=== PATIENT | female | born 1945 | race Caucasian/White ===

== ENCOUNTER 2018-07-12 08:19 | Emergency (ER) | payer MEDICARE, OTHER ==
[2018-07-12] MEDS ORDERED: PREDNISONE 20 MG TABLET PO ONE (09:42)
[2018-07-12] MEDS ORDERED: ONDANSETRON HCL INJ/PF 4 MG/2 ML SDV IV ONE (09:42)
[2018-07-12] MEDS ORDERED: MORPHINE SULFATE 10 MG/ML INJ IV ONE (09:42)
--- NOTE | 2018-07-12 09:52 | ER Document Report ---
ED General - General Chief Complaint: Headache Stated Complaint: HEADACHE Time Seen by Provider: 07/12/18 09:36 Information source: Patient Notes: 73-year-old female that presents with daughter with what she states is 3 weeks of bilateral jaw pain, worse with chewing; headache, without blurry vision, nausea, vomiting, or fevers. Patient states that this started around the same time that she had 2 crowns placed to her right posterior molars. She states that this has been persistent. She denies any aggravating or relieving factors. She denies any weakness or numbness to her arms or legs. She denies any blurry vision. She has went to see her primary care physician Dr. Darshana Goodwin, 3 days ago and had laboratory work and ESR ordered as well as an MRI of the brain. She is scheduled for temporal artery biopsy bilaterally on Saturday. She states that the MRI showed some white matter degenerative changes. She also states for 3 days she has had some midline lower back pain. She denies any trauma. She denies any weakness or numbness to her legs. She denies any dysuria. She states however she did have an episode of incontinence last night secondary to the pain walking to the bathroom. She denies any night sweats or weight loss. TRAVEL OUTSIDE OF THE [place] IN LAST 30 DAYS: No - HPI Onset: Other - See above Onset/Duration: Gradual Quality of pain: Achy Severity: Moderate Pain Level: 2 - See above Associated symptoms: Other - See above Exacerbated by: Denies Relieved by: Denies Similar symptoms previously: No Recently seen / treated by doctor: Yes - Related Data Allergies/Adverse Reactions: codeine [Codeine] Allergy (Verified 07/27/14 13:39) severe nausea Past Medical History - Social History Smoking Status: Never Smoker Chew tobacco use (# tins/day): No Frequency of alcohol use: None Drug Abuse: None Family History: Reviewed & Not Pertinent Patient has suicidal ideation: No Patient has homicidal ideation: No - Past Medical History Cardiac Medical History: Reports: Hx Hypertension Denies: Hx Heart Attack Pulmonary Medical History: Denies: Hx Asthma Neurological Medical History: Denies: Hx Cerebrovascular Accident, Hx Seizures Renal/ Medical History: Denies: Hx Peritoneal Dialysis GI Medical History: Denies: Hx Hepatitis, Hx Hiatal Hernia, Hx Ulcer Infectious Medical History: Denies: Hx Hepatitis Past Surgical History: Reports: Hx Hysterectomy. Denies: Hx Mastectomy, Hx Open Heart Surgery, Hx Pacemaker Review of Systems - Review of Systems Constitutional: denies: Fever EENT: denies: Eye discharge, Nose discharge Cardiovascular: denies: Chest pain, Palpitations Respiratory: denies: Short of breath Gastrointestinal: denies: Vomiting Genitourinary: denies: Dysuria Musculoskeletal: denies: Leg swelling Skin: Other - no hives. denies: Rash Neurological/Psychological: Other - no slurred speech -: Yes All other systems reviewed and negative Physical Exam - Vital signs Vitals: Resp Pulse Ox 39 H 97 07/12/18 08:33 07/12/18 08:33 Notes: Reviewed vital signs and nursing note as charted by RN. CONSTITUTIONAL: Alert and oriented and responds appropriately to questions. Well -appearing; well-nourished HEAD: Normocephalic; atraumatic EYES: PERRL; full extraocular range of motion; conjunctivae clear, sclerae non- icteric ENT: Normal nose; no rhinorrhea; moist mucous membranes; pharynx without lesions noted; no intraoral lesions with no obvious dental decay; no facial swelling, sinus tenderness or bogginess, mastoid swelling or tenderness. Patient has some tenderness to the bilateral temples with no erythema or induration present NECK: Supple without meningismus; non-tender; no carotid bruit; no cervical lymphadenopathy, no palpable thyroid CARD: Regular rate and rhythm; no murmurs, no clicks, no rubs, no gallops; symmetric distal pulses RESP: Normal chest excursion without splinting or tachypnea; breath sounds clear and equal bilaterally ABD/GI: Normal bowel sounds; non-distended; soft, non-tender, no rebound, no guarding; no palpable organomegaly or masses BACK: The back appears normal. EXT: Normal ROM in all joints; non-tender to palpation; no edema SKIN: No acute lesions noted NEURO: CN II through XII are intact. Patient has 5 out of 5 bilateral upper and lower extremity strength with sensation intact to light touch; minimal but present 1+ bilateral patellar reflexes PSYCH: The patient's mood and manner are appropriate. Grooming and personal hygiene are appropriate Course - Re-evaluation Re-evalutation: 07/12/18 09:52 Given the above history and physical examination, with a non-congruent story, I called and spoke directly to the primary care physician Dr. Darshana Calderon. She states around 2 days ago that the patient had an MRI at a local outpatient diagnostic imaging center. She states that there was "degenerative white matter changes" diffusely. Patient also had a sedimentation rate of 66. She did not place the patient on steroids. Patient has been afebrile at her office and according to patient's report. Given the above history, physical, afebrile, slow onset initially of bilateral jaw pain, worse when she chews, radiating to the temples, with MRI is recorded, without blurry vision, with an elevated sedimentation rate, I do believe acute bacterial meningitis and subarachnoid hemorrhage to be unlikely. Temporal arteritis is still in differential and therefore I will provide prednisone. Given the patient's lower back pain, with an episode of possible incontinence, I will order basic labs, urine analysis, and an MRI of the lumbar spine. I do not detect any focal neurological deficits. I do not detect any throat swelling , facial swelling, or intraoral lesions. 07/12/18 11:21 Pain is improved. No change in examination. White blood cell count and other laboratory values as recorded. 07/12/18 12:52 MRI is recorded. I have called and spoke directly to the radiologist who read the report and he states he sees no signs that would explain a cauda equina- like presentation. Patient still has 5 out of 5 strength to the bilateral lower extremities. Patient urinated without difficulty. On reexamination the patient has good perineal sensation. Patient's headache has improved. She still denies any blurry vision. Still has no focal neurological deficits. I have provided prednisone which I feel would be beneficial for possible temporal arteritis as well as what appears to be a herniated disc. 07/12/18 13:33 Patient states her headache is completely resolved. I have already provided her the first time dose of steroids. Patient has a biopsy on Saturday. The patient's primary care physician is easily accessible. Patient will be discharged home at this time with strict return precautions, Vicodin for pain, a 5-day course of steroids, with strict return precautions. - Vital Signs Vital signs: Temp Pulse Resp BP Pulse Ox 97.9 F 26 H 148/86 H 95 07/12/18 08:44 07/12/18 12:54 07/12/18 12:54 07/12/18 12:54 - Laboratory Result Diagrams: 07/12/18 09:55 07/12/18 09:55 Laboratory results interpreted by me: 07/12/18 07/12/18 07/12/18 09:55 09:55 10:30 MCV 99 H MCH 33.8 H RDW 14.3 H Lymphocytes % 12.4 L Carbon Dioxide 32 H Urine Blood SMALL H Discharge - Discharge Clinical Impression: Face pain Headache Qualifiers: Headache type: unspecified Headache chronicity pattern: acute headache Intractability: not intractable Qualified Code(s): R51 - Headache Low back pain Qualifiers: Chronicity: acute Back pain laterality: midline Sciatica presence: without sciatica Qualified Code(s): M54.5 - Low back pain Condition: Good Disposition: HOME, SELF-CARE Additional Instructions: Come back immediately with any worsening headaches, blurry vision, weakness or numbness, fevers or vomiting, chest pain, lower extremity weakness, incontinence , inability to urinate, or any other acute problems. Please make sure you follow-up on Saturday for the biopsy and discuss with that physician my 5-day prescription for 60 mg of prednisone daily. Please follow-up with your primary care physician. Prescriptions: Hydrocodone/Acetaminophen [[place] 5-325 Tablet] 1 each PO Q6 PRN #12 tablet PRN Reason: For Pain Ondansetron [Zofran Odt 4 mg Tablet] 1 tab PO Q6H #15 tab.rapdis Prednisone [Deltasone 20 mg Tablet] 3 tab PO DAILY 5 Days tablet Referrals: BRIANNA SAVAGE MD [ACTIVE STAFF] - Follow up as needed
[2018-07-12 10:08] LABS: ABSOLUTE BASOPHILS # (AUTO) 0.1 10^3/uL (0.0-0.2); ABSOLUTE EOSINOPHILS # (AUTO) 0.1 10^3/uL (0.0-0.6); ABSOLUTE LYMPHOCYTES (AUTO) 1.1 10^3/uL (0.5-4.7); ABSOLUTE MONOCYTES (AUTO) 0.9 10^3/uL (0.1-1.4); ABSOLUTE NEUT (AUTO) 6.6 10^3/uL (1.7-8.2); BASOPHILS % (AUTO) 0.7 % (0-2); EOSINOPHILS % (AUTO) 0.9 % (0-6); HEMATOCRIT 39.1 % (36.0-47.0); HEMOGLOBIN 13.4 g/dL (12.0-15.5); LYMPHOCYTES % (AUTO) 12.4 % (13-45); MEAN CORPUSCULAR HEMOGLOBIN 33.8 pg (27.0-33.4); MEAN CORPUSCULAR HGB CONC 34.3 g/dL (32.0-36.0); MEAN CORPUSCULAR VOLUME 99 fl (80-97); MONOCYTES % (AUTO) 10.1 % (3-13); PLATELET COUNT 398 10^3/uL (150-450); RED BLOOD COUNT 3.97 10^6/uL (3.72-5.28); RED CELL DISTRIBUTION WIDTH 14.3 % (11.5-14.0); SEGMENTED NEUTROPHILS % (AUTO) 75.9 % (42-78); TOTAL CELLS COUNTED % (AUTO) 100 %; WHITE BLOOD COUNT 8.7 10^3/uL (4.0-10.5)
[2018-07-12 10:31] LABS: ALANINE AMINOTRANSFERASE 39 U/L (9-52); ALBUMIN 3.6 g/dL (3.5-5.0); ALKALINE PHOSPHATASE 123 U/L (38-126); ANION GAP 8 (5-19); ASPARTATE AMINO TRANSFERASE 26 U/L (14-36); BILIRUBIN,DIRECT 0.2 mg/dL (0.0-0.4); BILIRUBIN,TOTAL 0.7 mg/dL (0.2-1.3); BLOOD UREA NITROGEN 7 mg/dL (7-20); CALCIUM 9.3 mg/dL (8.4-10.2); CARBON DIOXIDE 32 mmol/L (22-30); CHLORIDE 99 mmol/L (98-107); GLUCOSE 108 mg/dL (75-110); POTASSIUM 4.9 mmol/L (3.6-5.0); TOTAL PROTEIN 6.8 g/dL (6.3-8.2)
[2018-07-12 10:40] LABS: APPEARANCE,URINE CLEAR; BILIRUBIN,URINE NEGATIVE (NEGATIVE); COLOR,URINE YELLOW; GLUCOSE, URINE NEGATIVE (NEGATIVE); KETONES,URINE NEGATIVE (NEGATIVE); LEUKOCYTE ESTERASE,URINE NEGATIVE (NEGATIVE); NITRITE,URINE NEGATIVE (NEGATIVE); PROTEIN,URINE NEGATIVE (NEGATIVE); URINE SPECIFIC GRAVITY 1.009; UROBILINOGEN,URINE NEGATIVE mg/dL (<2.0)
--- NOTE | 2018-07-12 12:00 | RADIOLOGY REPORT (SQ) ---
EXAM DESCRIPTION: MRI LUMBAR SPINE COMBO COMPLETED DATE/TIME: 07/12/2018 11:30 am REASON FOR STUDY: 9; low back pain with incontinence COMPARISON: None. TECHNIQUE: Sagittal and Axial imaging includes T1, T1 post gadolinium, T2, STIR and gradient echo se quences. Coronal T2/HASTE imaging. CONTRAST TYPE AND DOSE: 10 mL Dotarem. RENAL FUNCTION: GFR > 60. LIMITATIONS: None. FINDINGS: VISUALIZED UPPER ABDOMEN: Limited evaluation. No acute or suspicious findings suggested. SEGMENTATION: No transitional anatomy. The lowest well-developed disc space is labeled L5-S1. ALIGNMENT: 3 mm retrolisthesis of L2 on L3 and 4 mm anterolisthesis of L4 on L5. VERTEBRAE: Intact. No fractures. BONE MARROW: No marrow edema or fracture. Scattered areas of reactive changes. . DISC SIGNAL: Multilevel disc desiccation. POSTERIOR ELEMENTS: Generally intact. No pars defect evident. HARDWARE: None in the spine. CORD AND CONUS: Normal in size and signal intensity. Conus at the appropriate level. SOFT TISSUES: No aortic aneurysm seen. No bulky retroperitoneal adenopathy or mass. No paraspinal mas s or fluid. L1-L2: 7.5 mm focal disc protrusion in the left L1-2 neural foramen with moderate -severe neural fora sumit stenosis. Mild effacement of the anterior thecal sac on the left, no high-grade central stenos is. L2-L3: No significant spinal stenosis or exit foraminal stenosis. L3-L4: Mild central spinal and bilateral neural foraminal stenosis due to broad-based disc bulge. L4-L5: Moderate-severe central spinal canal stenosis, 7 mm AP dimension residual, due to ligamentum f lavum hypertrophy and broad-based disc bulge. There is also moderate neural foraminal narrowing bila terally at this level. L5-S1: No significant spinal stenosis or exit foraminal stenosis. LOWER THORACIC: Incompletely imaged. No stenosis seen. SACRUM: Visualized upper sacrum intact. ENHANCEMENT: Mild thin dural enhancement adjacent to the L1-2 level disc protrusion. OTHER: No other significant findings. IMPRESSION: At the L4/5 level there is Moderate-severe central spinal canal stenosis, 7 mm AP dimens ion residual, due to ligamentum flavum hypertrophy and broad-based disc bulge. 7.5 mm focal disc prot rusion in the left L1-2 neural foramen with moderate -severe neural foraminal stenosis. Mild thin dur al enhancement adjacent to the L1-2 level disc protrusion, reactive appearing. No marrow edema or fl uid collection.3 mm retrolisthesis of L2 on L3 and 4 mm anterolisthesis of L4 on L5, degenerative richard earing. . TECHNICAL DOCUMENTATION: JOB ID: [id number] 2010 [employer]- All Rights Reserved Reading location - IP/workstation name: [email or web address]
[2018-07-12 13:47] VITALS: BP 163/89
[2018-07-12] MEDS ORDERED: HYDROCODONE/ACETAMINOPHEN 5-325 MG TABLET PO ONE (13:48)
== END 2018-07-12 14:05 | disposition home or self-care (01) ==
LOC: ER 08:19
DX: R51 Headache (principal); R68.84 Jaw pain; M54.5 Low back pain
CPT/HCPCS: 99284; 96374; 96375; 36415; 85025; 80053; 81001; 72158; A9576; J2270; A9270 ×2; J2405; J7512

== ENCOUNTER 2018-10-28 11:30 | Emergency (ER) | payer MEDICARE, OTHER ==
[2018-10-28] MEDS ORDERED: FENTANYL CITRATE INJ/PF 100 MCG/2 ML AMPUL IV ONE ×3 (11:44→15:09)
--- NOTE | 2018-10-28 11:53 | ER Document Report ---
ED General - General Stated Complaint: BACK PAIN Time Seen by Provider: 10/28/18 11:37 Primary Care Provider: JOAQUÍN PEREYRA PA-C [Primary Care Provider] - Follow up as needed Mode of Arrival: Medic Information source: Patient Notes: 73-year-old female brought to the emergency department by EMS for complaints of left hip pain. Patient denies any trauma or injury. Patient states that the pain started yesterday but has worsened today. She describes it as a dull aching sensation in the left hip. She denies any radiation the pain. She states that it is worse with movement. She denies any numbness, tingling, weakness, bowel or bladder incontinence. Patient denies any fever, dysuria, hematuria, increased urgency, increased frequency, abdominal pain, nausea, vomiting, diarrhea, constipation. TRAVEL OUTSIDE OF THE [place] IN LAST 30 DAYS: No - HPI Onset: Yesterday Onset/Duration: Gradual Quality of pain: Achy, Dull Severity: Severe Associated symptoms: None Exacerbated by: Movement Relieved by: Denies Similar symptoms previously: No Recently seen / treated by doctor: No - Related Data Allergies/Adverse Reactions: codeine [Codeine] Allergy (Verified 10/28/18 16:22) severe nausea Past Medical History - General Information source: Patient - Social History Smoking Status: Former Smoker Family History: Reviewed & Not Pertinent - Past Medical History Cardiac Medical History: Reports: Hx Hypertension Denies: Hx Heart Attack Pulmonary Medical History: Denies: Hx Asthma Neurological Medical History: Denies: Hx Cerebrovascular Accident, Hx Seizures Renal/ Medical History: Denies: Hx Peritoneal Dialysis GI Medical History: Denies: Hx Hepatitis, Hx Hiatal Hernia, Hx Ulcer Infectious Medical History: Denies: Hx Hepatitis Past Surgical History: Reports: Hx Hysterectomy. Denies: Hx Mastectomy, Hx Open Heart Surgery, Hx Pacemaker Review of Systems - Review of Systems Constitutional: No symptoms reported EENT: No symptoms reported Cardiovascular: No symptoms reported Respiratory: No symptoms reported Gastrointestinal: No symptoms reported Genitourinary: No symptoms reported Female Genitourinary: No symptoms reported Musculoskeletal: Joint pain, Muscle pain Skin: No symptoms reported Hematologic/Lymphatic: No symptoms reported Neurological/Psychological: No symptoms reported -: Yes All other systems reviewed and negative Physical Exam - Vital signs Vitals: Temp Pulse Resp BP Pulse Ox 97.8 F 102 H 20 194/88 H 96 10/28/18 12:01 10/28/18 12:01 10/28/18 12:01 10/28/18 12:10/28/18 12:01 - Notes Notes: PHYSICAL EXAMINATION: GENERAL: Well-appearing, well-nourished and in no acute distress. HEAD: Atraumatic, normocephalic. EYES: Pupils equal round and reactive to light, extraocular movements intact, conjunctiva are normal. ENT: Nares patent, oropharynx clear without exudates. Moist mucous membranes. NECK: Normal range of motion, supple without lymphadenopathy LUNGS: Breath sounds clear to auscultation bilaterally and equal. No wheezes rales or rhonchi. HEART: Regular rate and rhythm without murmurs ABDOMEN: Soft, nontender, nondistended abdomen. No guarding, no rebound. No masses appreciated. Female : deferred Musculoskeletal: Left hip tenderness to palpation. Normal active and passive ROM. 2+DP/PT pulses. No pitting edema. No calf tenderness to palpation. NEUROLOGICAL: Cranial nerves grossly intact. Normal speech, normal gait. Normal sensory, motor exams PSYCH: Normal mood, normal affect. SKIN: Warm, Dry, normal turgor, shingles noted to the anterior chest wall. Course - Re-evaluation Re-evalutation: 10/28/18 12:42 XR does not show an acute process. I went in the room to discuss this with the patient. Patient states that sometimes when her magnesium is low she gets muscle cramps. Patient states that this does not feel like a muscle cramp. She states that she did follow-up with her primary care physician yesterday and was told that her potassium was slightly elevated. Labs now ordered. Patient continues to deny any abdominal pain or back pain. 10/28/18 15:50 Labs and imaging obtained. No acute process identified. Patient states that h er pain is controlled with the fentanyl. No current pain on re-evaluation. I discussed the results with the patient. I told her I will discharge her home and have her follow-up outpatient with her primary care physician as well as orthopedic surgery. Patient feels comfortable with the plan of care. 10/28/18 15:57 10/28/18 17:45 Patient was ambulated by the nurse prior to discharge. Able to ambulate normally. Denies pain. I told the patient if she was having pain we would get additional imaging and discuss admission. patient denies pain. She's agreeable with discharge home and following up with her primary care physician outpatient. - Vital Signs Vital signs: Temp Pulse Resp BP Pulse Ox 97.8 F 102 H 27 H 165/82 H 89 L 10/28/18 12:01 10/28/18 12:01 10/28/18 15:01 10/28/18 15:01 10/28/18 15:01 - Laboratory Result Diagrams: 10/28/18 13:10 10/28/18 13:10 Laboratory results interpreted by me: 10/28/18 10/28/18 10/28/18 11:50 13:10 13:10 Hgb 15.8 H MCV 102 H MCH 35.1 H RDW 15.6 H Seg Neutrophils % 84.1 H Lymphocytes % 9.6 L Carbon Dioxide 31 H Total Protein 6.0 L Ur Leukocyte Esterase TRACE H Discharge - Discharge Clinical Impression: Hip pain Qualifiers: Laterality: left Qualified Code(s): M25.552 - Pain in left hip Condition: Stable Disposition: HOME, SELF-CARE Instructions: Leg Pain Nonspecific ([facility]) Referrals: JOAQUÍN PEREYRA PA-C [Primary Care Provider] - Follow up as needed
--- NOTE | 2018-10-28 12:34 | RADIOLOGY REPORT (SQ) ---
EXAM DESCRIPTION: HIP LEFT AP/LATERAL COMPLETED DATE/TIME: 10/28/2018 12:24 pm REASON FOR STUDY: pain COMPARISON: None. NUMBER OF VIEWS: Two views. TECHNIQUE: AP pelvis and additional frog-leg view of the left hip. LIMITATIONS: None. FINDINGS: MINERALIZATION: Normal. LEFT HIP: No fracture or dislocation. No worrisome bone lesions. Minimal osteophytosis. Joint spac e is preserved. RIGHT HIP: No fracture or dislocation. No worrisome bone lesions. Minimal osteophytosis. Joint spa ce is preserved. PUBIS AND ISCHIUM: No fracture. PELVIS: No fracture. SACRUM: No fracture or dislocation. No worrisome bone lesions. Mild SI joint osteophytosis. LOWER LUMBAR SPINE: No fracture. Mild lower lumbar spondylosis. SOFT TISSUES: Scattered pelvic phleboliths. OTHER: No other significant finding. IMPRESSION: No evidence of acute bony abnormality. TECHNICAL DOCUMENTATION: JOB ID: [id number] [employer]- All Rights Reserved Reading location - IP/workstation name: [email or web address]
[2018-10-28 13:03] LABS: APPEARANCE,URINE CLEAR; BILIRUBIN,URINE NEGATIVE (NEGATIVE); COLOR,URINE YELLOW; GLUCOSE, URINE NEGATIVE (NEGATIVE); KETONES,URINE NEGATIVE (NEGATIVE); LEUKOCYTE ESTERASE,URINE TRACE (NEGATIVE); NITRITE,URINE NEGATIVE (NEGATIVE); PROTEIN,URINE NEGATIVE (NEGATIVE); URINE SPECIFIC GRAVITY 1.006; UROBILINOGEN,URINE NEGATIVE mg/dL (<2.0)
[2018-10-28 13:45] LABS: ABSOLUTE EOSINOPHILS # (AUTO) 0.1 10^3/uL (0.0-0.6); ABSOLUTE LYMPHOCYTES (AUTO) 0.8 10^3/uL (0.5-4.7); ABSOLUTE MONOCYTES (AUTO) 0.5 10^3/uL (0.1-1.4); ABSOLUTE NEUT (AUTO) 7.5 10^3/uL (1.7-8.2); BASOPHILS % (AUTO) 0.2 % (0-2); EOSINOPHILS % (AUTO) 0.7 % (0-6); HEMATOCRIT 45.9 % (36.0-47.0); HEMOGLOBIN 15.8 g/dL (12.0-15.5); LYMPHOCYTES % (AUTO) 9.6 % (13-45); MEAN CORPUSCULAR HEMOGLOBIN 35.1 pg (27.0-33.4); MEAN CORPUSCULAR HGB CONC 34.4 g/dL (32.0-36.0); MEAN CORPUSCULAR VOLUME 102 fl (80-97); MONOCYTES % (AUTO) 5.4 % (3-13); PLATELET COUNT 227 10^3/uL (150-450); RED CELL DISTRIBUTION WIDTH 15.6 % (11.5-14.0); SEGMENTED NEUTROPHILS % (AUTO) 84.1 % (42-78); TOTAL CELLS COUNTED % (AUTO) 100 %; WHITE BLOOD COUNT 8.9 10^3/uL (4.0-10.5)
[2018-10-28 14:05] LABS: ALANINE AMINOTRANSFERASE 47 U/L (9-52); ALBUMIN 4.1 g/dL (3.5-5.0); ALKALINE PHOSPHATASE 55 U/L (38-126); ANION GAP 7 (5-19); ASPARTATE AMINO TRANSFERASE 29 U/L (14-36); BILIRUBIN,DIRECT 0.1 mg/dL (0.0-0.4); BILIRUBIN,TOTAL 1.2 mg/dL (0.2-1.3); BLOOD UREA NITROGEN 13 mg/dL (7-20); CALCIUM 8.8 mg/dL (8.4-10.2); CARBON DIOXIDE 31 mmol/L (22-30); CHLORIDE 102 mmol/L (98-107); GLUCOSE 101 mg/dL (75-110); SODIUM 139.8 mmol/L (137-145)
[2018-10-28 15:20] VITALS: BP 165/82
== END 2018-10-28 16:57 | disposition home or self-care (01) ==
LOC: ER 11:30
DX: M25.552 Pain in left hip (principal); M54.9 Dorsalgia, unspecified; I10 Essential (primary) hypertension; Z88.6 Allergy status to analgesic agent; Z90.710 Acquired absence of both cervix and uterus
CPT/HCPCS: 96376; 99284; 96374; 36415; 87086; 83735; 85025; 80053; 81001; 73502; J3010